=== PATIENT | male | born 1940 | race Caucasian/White ===

== ENCOUNTER 2020-08-17 22:27 | Observation (INO) | payer BC, MEDICARE ==
[2020-08-17 23:04] LABS: Basophils # (A) 0.1 k/uL (0-0.2); Basophils % (A) 1 %; Eosinophils # (A) 0.1 k/uL (0-0.7); Eosinophils % (A) 1 %; HCT 42.6 % (39.0-53.0); HGB 14.6 gm/dL (13.0-17.5); Lymphocytes % (A) 10 %; MCH 31.7 pg (25.0-35.0); MCHC 34.3 g/dL (31.0-37.0); MCV 92.3 fL (80.0-100.0); Mean Platelet Volume 7.2; Monocytes # (A) 0.6 k/uL (0-1.0); Monocytes % (A) 6 %; Neutrophils # (A) 8.8 k/uL (1.3-7.7); Neutrophils % (A) 83 %; Platelet Count 173 k/uL (150-450); RBC 4.61 m/uL (4.30-5.90); RDW 12.4 % (11.5-15.5); WBC 10.6 k/uL (3.8-10.6)
[2020-08-17 23:13] LABS: Albumin 4.2 g/dL (3.5-5.0); Calcium 9.4 mg/dL (8.4-10.2); Magnesium 1.6 mg/dL (1.6-2.3); Total Bilirubin 1.1 mg/dL (0.2-1.3); Total Protein 7.1 g/dL (6.3-8.2)
--- NOTE | 2020-08-17 23:18 | XR ---
EXAMINATION TYPE: XR chest 2V DATE OF EXAM: 08/17/2020 COMPARISON: NONE HISTORY: Chest pain TECHNIQUE: 2 views FINDINGS: Heart is normal. Thoracic aorta is atheromatous. Lungs are clear. There is no heart failure . There are chest leads. Costophrenic angles are clear. IMPRESSION: No active cardiopulmonary disease. Normal heart.
[2020-08-17 23:20] LABS: D-Dimer 0.58 mg/L FEU (<0.60); INR 0.9 (<1.2); Partial Thromboplastin Time 23.5 sec (22.0-30.0); Prothrombin Time 9.7 sec (9.0-12.0)
--- NOTE | 2020-08-17 23:56 | ED ---
Chest Pain HPI - General Chief Complaint: Chest Pain Stated Complaint: Chest pain Time Seen by Provider: 08/17/20 22:37 Source: patient Mode of arrival: wheelchair Limitations: no limitations - History of Present Illness Initial Comments: This patient is 79-year-old man who presents to be evaluated for chest pain. He states that he had some vague discomfort last night but states that the pain really began this morning while he was watching television. He indicates substernal area and states that it's a burning sensation. It is intermittent lasting around 10-15 minutes at a time. He currently has no pain. He became concerned when he had an episode that included some diaphoresis. Patient states that his father of an [place] in his 50s. MD Complaint: chest pain Onset/Timin -: days(s) Onset: during rest Pain Location: substernal Pain Radiation: none Severity: mild Quality: other Consistency: intermittent, now resolved Improves With: nothing Worsens With: nothing Anginal Symptoms: diaphoresis Treatments Prior to Arrival: none - Related Data Home Medications Medication Instructions Recorded Confirmed Atorvastatin [Lipitor] 80 mg PO DAILY 08/17/20 08/17/20 Diltiazem Cd [Cardizem Cd] 240 mg PO DAILY 08/17/20 08/17/20 hydroCHLOROthiazide [Hydrodiuril] 12.5 mg PO DAILY 08/17/20 08/17/20 lisinopriL 40 mg PO DAILY 08/17/20 08/17/20 Allergies Allergy/AdvReac Type Severity Reaction Status Date / Time No Known Allergies Allergy Verified 08/17/20 23:32 Review of Systems ROS Statement: Those systems with pertinent positive or pertinent negative responses have been documented in the HPI. ROS Other: All systems not noted in ROS Statement are negative. Constitutional: Denies: fever, chills Respiratory: Denies: cough, dyspnea Cardiovascular: Reports: as per HPI, chest pain. Denies: palpitations, orthopnea, edema, syncope Gastrointestinal: Denies: abdominal pain, nausea, vomiting Genitourinary: Denies: dysuria, hematuria Musculoskeletal: Denies: back pain Skin: Denies: rash Neurological: Denies: headache, weakness, numbness EKG Findings - EKG Results: EKG: interpreted by ERMD, sinus rhythm, normal QRS, normal ST/T EKG shows: tachycardia (Rate 106 bpm) - Blocks, Barre, Hypertrophy, ST Abn: QRS axis and voltage: left axis deviation (-30 to -90) Past Medical History Past Medical History: Hyperlipidemia, Hypertension History of Any Multi-Drug Resistant Organisms: None Reported Past Surgical History: Appendectomy, Hernia Repair, Orthopedic Surgery Additional Past Surgical History / Comment(s): lt knee Past Psychological History: No Psychological Hx Reported Smoking Status: Never smoker Past Alcohol Use History: Occasional Past Drug Use History: None Reported General Exam Limitations: no limitations General appearance: alert, in no apparent distress Head exam: Present: atraumatic, normocephalic Eye exam: Present: normal appearance. Absent: scleral icterus, conjunctival injection ENT exam: Present: normal oropharynx Neck exam: Present: normal inspection Respiratory exam: Present: normal lung sounds bilaterally. Absent: respiratory distress, wheezes, rales, rhonchi, stridor Cardiovascular Exam: Present: regular rate, normal rhythm, normal heart sounds. Absent: systolic murmur, diastolic murmur, rubs, gallop GI/Abdominal exam: Present: soft. Absent: distended, tenderness, guarding, rebound, rigid, mass Extremities exam: Present: normal inspection, normal capillary refill. Absent: pedal edema, calf tenderness Back exam: Present: normal inspection. Absent: CVA tenderness (R), CVA tenderness (L) Neurological exam: Present: alert Skin exam: Present: warm, dry, intact, normal color. Absent: rash Course Vital Signs 08/17/20 08/17/20 08/18/20 22:28 23:31 00:45 Temperature 100.2 F H 100.9 F H Pulse Rate 104 H 79 82 Respiratory 20 16 16 Rate Blood Pressure 151/84 110/61 112/63 O2 Sat by Pulse 96 98 96 Oximetry 08/18/20 01:57 Temperature 99.8 F H Pulse Rate 87 Respiratory 18 Rate Blood Pressure 118/78 O2 Sat by Pulse 97 Oximetry Disposition Clinical Impression: Atypical chest pain Disposition: ADMITTED IP TO THIS HOSP Condition: Good Is patient prescribed a controlled substance at d/c from ED?: No
[2020-08-18] MEDS ORDERED: NITROGLYCERIN SL TABS 0.4 MG TAB SUBLINGUAL PRN (00:41)
[2020-08-18] MEDS ORDERED: ACETAMINOPHEN TAB 325 MG TAB PO STA (01:01)
[2020-08-18] MEDS: ATORVASTATIN 80 MG TAB PO SCH (09:58)
[2020-08-18] MEDS: DILTIAZEM CD 240 MG CAP.ER.24H PO SCH (09:58)
[2020-08-18] MEDS: hydroCHLOROthiazide 12.5 MG CAP PO SCH (09:58)
[2020-08-18] MEDS: lisinopriL 20 MG TAB PO SCH (09:58)
--- NOTE | 2020-08-18 13:44 | P.CRDCN ---
History of Present Illness History of present illness: HISTORY OF PRESENTING ILLNESS This is a pleasant 79-year-old male past medical history significant for essential hypertension, hyperlipidemia and rare alcohol use. 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 He does have a family history of his mother dying operating table for cardiac surgery as well as father of an [place] in his 50s. He noted chest pain over the past 2 days which felt somewhat sharp and was worse with inspiration. He also has been noting a cough and states he broke out in a sweat last night and has been having chills. He denies any sick contacts. He was noted to have a fever of 100.9 on admission. He denies any similar symptoms. He was concern given his family history and therefore presented to the emergency department. He had workup including a chest x-ray which showed no acute cardiopulmonary process. He was tested for [place] in 19 which was normal. His troponins were noted to be normal. Creatinine 1.07. D-dimer 0.58. White blood cell 10.6 and hemoglobin 14.6. He denies any association with exertion and states he has been feeling fine going about his daily activities. The chest pain had been fairly constant until this morning it has improved DIAGNOSTICS EKG reveals sinus tachycardia with heart rate 106, left axis deviation, poor R- wave progression, possible lead misplacement. Chest xray no acute process. Current cardiac medications include aspirin 325 mg daily, Lipitor 80 mg daily, Cardizem 240 mg daily, hydrocodone thiazide 12.5 mg daily, lisinopril 40 mg daily. REVIEW OF SYSTEMS At the time of my exam: CONSTITUTIONAL: + fever+ chills. CARDIOVASCULAR: +chest pain, denies shortness of breath, orthopnea, PND or palpitations. RESPIRATORY: + cough. GASTROINTESTINAL: Denies abdominal pain, diarrhea, constipation, nausea or vomiting. MUSCULOSKELETAL: Denies myalgias. NEUROLOGIC: Denies numbness, tingling or weakness. ENDOCRINE: Denies fatigue, weight change, polydipsia or polyurina. GENITOURINARY: Denies burning, hematuria or urgency with micturation. HEMATOLOGIC: Denies history of anemia or bleeding. PHYSICAL EXAMINATION Vital signs reviewed CONSTITUTIONAL: No apparent distress. HEENT: Head is normocephalic. Pupils are equal, round. Sclerae anicteric. Mucous membranes of the mouth are moist. No JVD. No carotid bruit. CHEST EXAMINATION: Lungs are clear to auscultation. No chest wall tenderness is noted on palpation or with deep breathing. HEART EXAMINATION: Regular rate and rhythm. S1, S2 heard. No murmurs, gallops or rub. ABDOMEN: Soft, nontender. Positive bowel sounds. EXTREMITIES: 2+ peripheral pulses, no lower extremity edema and no calf tenderness. NEUROLOGIC EXAMINATION: Patient is awake, alert and oriented x3. ASSESSMENT 1. Atypical chest pain which appears more pleuritic in nature. Patient's presentation of cough, fevers, chills may be related to a infectious etiology 2. Essential hypertension 3. Hyperlipidemia 4. Family history of coronary artery disease 5. Recent fevers, chills, cough however chest x-ray without acute process. May be bronchitis or other early pneumonia PLAN Patient's main presentation appears consistent with an infectious etiology with fevers, chills and cough. His chest x-ray however was normal. His chest pain appears predominantly pleuritic in nature. He does however have significant risk factors and we discussed echocardiogram and possible stress testing if patient remains in the hospital. Patient believes he will be able to exercise on a treadmill. We will check a 2-D echo and stress echo if patient remains hospitalized. Past Medical History Past Medical History: Hyperlipidemia, Hypertension History of Any Multi-Drug Resistant Organisms: None Reported Past Surgical History: Appendectomy, Hernia Repair, Orthopedic Surgery Additional Past Surgical History / Comment(s): lt knee Past Anesthesia/Blood Transfusion Reactions: No Reported Reaction Past Psychological History: No Psychological Hx Reported Smoking Status: Never smoker Past Alcohol Use History: Occasional Past Drug Use History: None Reported Medications and Allergies Home Medications Medication Instructions Recorded Confirmed Type Atorvastatin [Lipitor] 80 mg PO DAILY 08/17/20 08/17/20 History Diltiazem Cd [Cardizem Cd] 240 mg PO DAILY 08/17/20 08/17/20 History hydroCHLOROthiazide [Hydrodiuril] 12.5 mg PO DAILY 08/17/20 08/17/20 History lisinopriL 40 mg PO DAILY 08/17/20 08/17/20 History Allergies Allergy/AdvReac Type Severity Reaction Status Date / Time No Known Allergies Allergy Verified 08/17/20 23:32 Physical Exam Vitals: Vital Signs Temp Pulse Pulse Resp BP BP Pulse Ox 08/18/20 09:00 98.6 F 87 16 120/69 95 12/27/20 05:21 98.1 F 08/18/20 02:29 99.2 F 88 112/64 96 08/18/20 02:20 99.2 F 88 112/64 96 08/18/20 01:57 99.8 F H 87 18 118/78 97 08/18/20 00:45 100.9 F H 82 16 112/63 96 08/17/20 23:31 79 16 110/61 98 08/17/20 22:28 100.2 F H 104 H 20 151/84 96 Intake and Output 08/17/20 08/18/20 08/18/20 22:59 06:59 14:59 Intake Total 0 0 Balance 0 0 Intake: Oral 0 0 Other: Weight 81.647 kg 81.647 kg Results 08/17/20 22:57 08/17/20 22:57 Cardiac Enzymes 08/17/20 08/17/20 08/18/20 Range/Units 22:57 22:57 01:40 AST 21 (17-59) U/L Troponin I <0.012 <0.012 (0.000-0.034) ng/mL 08/18/20 Range/Units 05:26 AST (17-59) U/L Troponin I <0.012 (0.000-0.034) ng/mL Coagulation 08/17/20 Range/Units 22:57 PT 9.7 (9.0-12.0) sec APTT 23.5 (22.0-30.0) sec CBC 08/17/20 Range/Units 22:57 WBC 10.6 (3.8-10.6) k/uL RBC 4.61 (4.30-5.90) m/uL Hgb 14.6 (13.0-17.5) gm/dL Hct 42.6 (39.0-53.0) % Plt Count 173 (150-450) k/uL Comprehensive Metabolic Panel 08/17/20 Range/Units 22:57 Sodium 139 (137-145) mmol/L Potassium 4.0 (3.5-5.1) mmol/L Chloride 104 (98-107) mmol/L Carbon Dioxide 27 (22-30) mmol/L BUN 18 (9-20) mg/dL Creatinine 1.07 (0.66-1.25) mg/dL Glucose 153 H (74-99) mg/dL Calcium 9.4 (8.4-10.2) mg/dL AST 21 (17-59) U/L ALT 18 (4-49) U/L Alkaline Phosphatase 91 (38-126) U/L Total Protein 7.1 (6.3-8.2) g/dL Albumin 4.2 (3.5-5.0) g/dL Current Medications Generic Name Dose Route Start Last Admin Trade Name Freq PRN Reason Stop Dose Admin Aspirin 325 mg 08/19/20 09:00 Aspirin 325 Mg Tab PO DAILY AVIVA Atorvastatin Calcium 80 mg 08/18/20 09:00 08/18/20 09:58 Atorvastatin 80 Mg Tab PO 80 mg DAILY AVIVA Administration Diltiazem HCl 240 mg 08/18/20 09:00 08/18/20 09:58 Diltiazem Cd 240 Mg Cap.Er.24h PO 240 mg DAILY AVIVA Administration Hydrochlorothiazide 12.5 mg 08/18/20 09:00 08/18/20 09:58 Hydrochlorothiazide 12.5 Mg Cap PO 12.5 mg DAILY AVIVA Administration Lisinopril 40 mg 08/18/20 09:00 08/18/20 09:58 Lisinopril 20 Mg Tab PO 40 mg DAILY AVIVA Administration Nitroglycerin 0.4 mg 08/18/20 00:41 Nitroglycerin Sl Tabs 0.4 Mg Tab SUBLINGUAL Q5M PRN Chest Pain Sodium Chloride 10 ml 08/18/20 09:00 Sodium Chloride 0.9% Flush 10 Ml Syringe IV BID AVIVA Intake and Output 08/17/20 08/18/20 08/18/20 22:59 06:59 14:59 Intake Total 0 0 Balance 0 0 Intake: Oral 0 0 Other: Weight 81.647 kg 81.647 kg 08/17/20 22:57 08/17/20 22:57
--- NOTE | 2020-08-18 15:17 | P.HPIM ---
History of Present Illness H&P Date: 08/18/20 Chief Complaint: Intermittent chest pain however for last 3 days has been co ughing greenish This is a 79-year-old male with prior medical history significant for hypertension hypertensive cardiovascular disease also dyslipidemia, patient is a nonsmoker, came into the hospital with awake left-sided chest pain while he was watching TV pain was substernal as well along with burning sensation lasted few minutes came into the hospital however in the hospital noted to have P faint pain-free, patient on the other hand does have a history of cough and increase in sputum production for last 3 or 4 days, chest x-ray is unremarkable, cardiovascular services and evaluated the patient is scheduled for a stress test and echocardiogram Review of Systems All systems: negative Past Medical History Past Medical History: Hyperlipidemia, Hypertension History of Any Multi-Drug Resistant Organisms: None Reported Past Surgical History: Appendectomy, Hernia Repair, Orthopedic Surgery Additional Past Surgical History / Comment(s): lt knee Past Anesthesia/Blood Transfusion Reactions: No Reported Reaction Past Psychological History: No Psychological Hx Reported Smoking Status: Never smoker Past Alcohol Use History: Occasional Past Drug Use History: None Reported Medications and Allergies Home Medications Medication Instructions Recorded Confirmed Type Atorvastatin [Lipitor] 80 mg PO DAILY 08/17/20 08/17/20 History Diltiazem Cd [Cardizem Cd] 240 mg PO DAILY 08/17/20 08/17/20 History hydroCHLOROthiazide [Hydrodiuril] 12.5 mg PO DAILY 08/17/20 08/17/20 History lisinopriL 40 mg PO DAILY 08/17/20 08/17/20 History Allergies Allergy/AdvReac Type Severity Reaction Status Date / Time No Known Allergies Allergy Verified 08/17/20 23:32 Physical Exam Vitals: Vital Signs Temp Pulse Pulse Resp BP BP Pulse Ox 08/18/20 09:00 98.6 F 87 16 120/69 95 08/18/20 05:21 98.1 F 08/18/20 02:29 99.2 F 88 112/64 96 08/18/20 02:20 99.2 F 88 112/64 96 08/18/20 01:57 99.8 F H 87 18 118/78 97 08/18/20 00:45 100.9 F H 82 16 112/63 96 08/17/20 23:31 79 16 110/61 98 08/17/20 22:28 100.2 F H 104 H 20 151/84 96 Intake and Output 08/18/20 08/18/20 08/18/20 06:59 14:59 22:59 Intake Total 0 0 Balance 0 0 Intake: Oral 0 0 Other: Weight 81.647 kg - Constitutional General appearance: average body habitus, cooperative, disheveled - EENT Eyes: EOMI, PERRLA Ears: bilateral: normal - Neck Carotids: bilateral: upstroke normal - Respiratory Respiratory: bilateral: CTA - Cardiovascular Rhythm: regular Heart sounds: normal: S1, S2 - Gastrointestinal General gastrointestinal: soft - Integumentary Integumentary: normal turgor - Neurologic Neurologic: CNII-XII intact - Musculoskeletal Musculoskeletal: gait normal, generalized weakness, strength equal bilaterally - Psychiatric Psychiatric: A&O x's 3, appropriate affect, intact judgment & insight Results CBC & Chem 7: 08/17/20 22:57 08/17/20 22:57 Labs: Abnormal Lab Results - Last 24 Hours (Table) 08/17/20 08/17/20 Range/Units 22:57 22:57 Neutrophils # 8.8 H (1.3-7.7) k/uL Glucose 153 H (74-99) mg/dL Chest x-ray: report reviewed, image reviewed Thrombosis Risk Factor Assmnt - Choose All That Apply Each Risk Factor Represents 3 Points: Age 75 years or older Thrombosis Risk Factor Assessment Total Risk Factor Score: 3 Thrombosis Risk Factor Assessment Level: Moderate Risk Assessment and Plan Assessment: Chest pain substernal and left-sided, cardiovascular services evaluating currently patient is pain-free Acute bronchitis Hypertension hypertensive cardiovascular disease Dyslipidemia Plan: We'll start patient on doxycycline along with Rocephin Further workup and cardiovascular evaluation as per computer hardware developer Continue home medications Further recommendations pending plan of care as per clinical response of the patient Time with Patient: Greater than 30
[2020-08-18] MEDS: DOXYCYCLINE 100 MG CAP PO SCH ×2 (15:31→20:31)
[2020-08-18] MEDS ORDERED: RX INFO: IV CONTRAST WAS GIVEN 1 EACH MISC MISCELLANE PRN (20:55)
--- NOTE | 2020-08-18 23:03 | CT ---
EXAMINATION TYPE: CT chest w con DATE OF EXAM: 08/18/2020 COMPARISON: None HISTORY: Pt tachypnea and diaphoretic. CT DLP: 388.7 mGycm Automated exposure control for dose reduction was used. CONTRAST: Performed with IV Contrast, patient injected with 100 mL of Isovue 300. Images obtained from the thoracic inlet to the diaphragm with IV contrast. There is some mild subsegmental atelectasis in the posterior lung orellana. There is some mild airspace infiltrate left posterior lung base. There is no pleural effusion. There is small pericardial effusi on. There is 1.5 [place] cyst in the superior right lobe of the liver. There are no hilar masses. Thoracic aorta is intact. 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 T he ascending aorta measures 4 cm without dissection. There is some spurring in the thoracic spine. I see no significant compression deformity. There is 15 % wedging of T6 vertebra. The sternum is intact. There are multiple calcified gallstones. The bile ducts are not dilated. IMPRESSION: There is some mild linear infiltrate and atelectasis at the lung bases. No suspicious pulmonary mass. This is consistent with inflammatory disease. Mild pericardial effusion.
[2020-08-19 03:31] LABS: Cholesterol 137 mg/dL (<200); HDL Cholesterol 36 mg/dL (40-60); LDL Cholesterol,Calculated 89 mg/dL (0-99); Triglycerides 59 mg/dL (<150)
--- NOTE | 2020-08-19 08:57 | P.PN ---
Subjective Patient is doing well. He feels a lot better now. He had pleuritic chest discomfort when he came in on both sides of his chest but for the last day and a half he has not had any further discomfort. His breathing is better He is afebrile 98.6F, pulse rate in the 80s he is not short of breath he is not in any respiratory distress Blood pressure 150/63 mmHg he does not appear tachypneic and he is not coughing Computed tomography scan suggests an inflammatory process in the lung S pace disease in the left posterior lung base on computed tomography scan Small pericardial effusion on computed tomography scan Multiple calcified gallstones Spondylosis of the spine Cyst in the superior right lobe of the liver 1.5 cm Impression Patient admitted with shortness of breath cough low-grade fever and tachypnea likely pneumonitis Currently on IV antibiotics and showing significant improvement Cardiac enzymes are normal EKG is normal Dyslipidemia, on atorvastatin 80 mg daily, LDL in the 80s Hypertension, on lisinopril and diltiazem Suggest 2-D echo and Doppler study to be reviewed. It was just done Continue antibiotics Continue antihypertensive therapy Continue statins No further cardiac workup needed at this point Outpatient reevaluation after completion of oral antibiotics at home Follow up with Dr. Ivy in 1 week post discharge new From a cardiac standpoint patient may go home in the next 24-48 hours if hemodynamically stable Currently he is stable Objective - Vital Signs Vital signs: Vital Signs Temp 98.6 F 08/19/20 02:20 Pulse 85 08/19/20 02:20 Resp 28 H 08/18/20 19:55 BP 98/60 08/19/20 02:20 Pulse Ox 94 L 08/19/20 02:20 Intake & Output 08/18/20 08/19/20 08/19/20 18:59 06:59 18:59 Intake Total 1130 Balance 1130 Intake: Intake, IV Titration 50 Amount cefTRIAXone 1 gm In 50 Sodium Chloride 0.9% 50 ml @ 100 mls/hr IVPB Q24HR ON LICENSE OF [facility] Rx#:[id number] Oral 1080 Other: # Voids 2 3 - Labs CBC & Chem 7: 08/17/20 22:57 08/17/20 22:57 Labs: Abnormal Lab Results - Last 24 Hours (Table) 08/18/20 Range/Units 05:26 HDL Cholesterol 36 L (40-60) mg/dL
[2020-08-19] MEDS ORDERED: ASPIRIN 325 MG TAB PO SCH (09:00)
[2020-08-19] MEDS: DILTIAZEM CD 240 MG CAP.ER.24H PO SCH (09:22)
[2020-08-19] MEDS: DOXYCYCLINE 100 MG CAP PO SCH (09:22)
[2020-08-19] MEDS: hydroCHLOROthiazide 12.5 MG CAP PO SCH (09:22)
[2020-08-19] MEDS: lisinopriL 20 MG TAB PO SCH (09:22)
[2020-08-19] MEDS: ATORVASTATIN 80 MG TAB PO SCH (09:22)
[2020-08-19 10:35] VITALS: RESP 16
--- NOTE | 2020-08-19 13:01 | ECHOF ---
Referral Reason:re: CP MEASUREMENTS -------- HEIGHT: 172.7 cm WEIGHT: 81.6 kg BP: 98/60 IVSd: 1.2 cm (0.6 - 1.1) LVIDd: 3.8 cm (3.9 - 5.3) LVPWd: 1.4 cm (0.6 - 1.1) IVSs: 1.7 cm LVIDs: 2.8 cm LVPWs: 1.4 cm RVIDd: 4.8 cm (< 3.3) LAESV Index (A-L): 26.61 ml/m Ao Diam: 3.7 cm (2.0 - 3.7) AV Cusp: 2.2 cm (1.5 - 2.6) EPSS: 1.1 cm MV E Jostin: 0.96 m/s MV DecT: 218 ms MV A Jostin: 1.12 m/s MV E/A Ratio: 0.86 RAP: 5.00 mmHg RVSP: 42.55 mmHg MV EF SLOPE: 84.66 mm/s (70 - 150) MV EXCURSION: 17.80 mm (> 18.000) FINDINGS -------- Sinus rhythm. This was a technically adequate study. The left ventricular size is normal. There is mild concentric left ventricular hypertrophy. Overa ll left ventricular systolic function is normal with, an EF between 55 - 60 %. The right ventricle is moderately enlarged. Normal LA size by volume 22+/-6 ml/m2. The right atrial size is normal. Interatrial and interventricular septum intact. The aortic valve is trileaflet and appears structurally normal. There is no evidence of aortic regu rgitation. There is no evidence of aortic stenosis. There is trace to mild mitral regurgitation. Moderate tricuspid regurgitation present. There is moderate pulmonary hypertension. The right andria tricular systolic pressure, as measured by Doppler, is 42.55mmHg. Trace/mild (physiologic) pulmonic regurgitation. The aortic root size is normal. IVC Not well visulized. There is no pericardial effusion. CONCLUSIONS -------- 1. The left ventricular size is normal. 2. There is mild concentric left ventricular hypertrophy. 3. Overall left ventricular systolic function is normal with, an EF between 55 - 60 %. 4. The right ventricle is moderately enlarged. 5. There is trace to mild mitral regurgitation. 6. Moderate tricuspid regurgitation present. 7. There is moderate pulmonary hypertension. 8. The right ventricular systolic pressure, as measured by Doppler, is 42.55mmHg. 9. Trace/mild (physiologic) pulmonic regurgitation. TERRAZZO ROLLER: Augustina Mendez RDCS
[2020-08-19 15:29] VITALS: BP 110/69; PULSE 98; TEMP 98.2
--- NOTE | 2020-08-19 18:01 | P.DS ---
Providers Date of admission: 08/18/20 00:41 Expected date of discharge: 08/19/20 Attending physician: Jim Page Consults: 08/18/20 00:41 Consult Physician Routine Consulting Provider: Jessi Ramon Consult Reason/Comments: chest pain Do you want consulting provider notified?: Yes Primary care physician: Azael Veras MD Hospital Course: 08/19/2020, patient seen eval reexamined labs reviewed medications reviewed cough congestion improved patient remains on Rocephin and doxycycline, respiratory status stable, cardiovascular services recommended to schedule a stress test and echocardiogram as outpatient, given ongoing respiratory symptoms,, a shunt to follow with Dr. William Ivy in 1 week This is a 79-year-old male with prior medical history significant for h ypertension hypertensive cardiovascular disease also dyslipidemia, patient is a nonsmoker, came into the hospital with awake left-sided chest pain while he was watching TV pain was substernal as well along with burning sensation lasted few minutes came into the hospital however in the hospital noted to have P faint pain-free, patient on the other hand does have a history of cough and increase in sputum production for last 3 or 4 days, chest x-ray is unremarkable, cardiovascular services and evaluated the patient is scheduled for a stress test and echocardiogram - Constitutional General appearance: average body habitus, cooperative, disheveled - EENT Eyes: EOMI, PERRLA Ears: bilateral: normal - Neck Carotids: bilateral: upstroke normal - Respiratory Respiratory: bilateral: CTA - Cardiovascular Rhythm: regular Heart sounds: normal: S1, S2 - Gastrointestinal General gastrointestinal: soft - Integumentary Integumentary: normal turgor - Neurologic Neurologic: CNII-XII intact - Musculoskeletal Musculoskeletal: gait normal, generalized weakness, strength equal bilaterally - Psychiatric Psychiatric: A&O x's 3, appropriate affect, intact judgment & insigt Patient had a computed tomography scan of the chest which showed linear infiltrate along with atelectasis, no suspicious masses present, no pulmonary embolism present mild pericardial effusion identified Echocardiogram revealed ejection fraction of 55-60%, mild pulmonary hypertension is present, Assessment: Community-acquired pneumonia Mild to moderate pulmonary hypertension Small pericardial effusion Chest pain substernal and left-sided, cardiovascular services evaluating currently patient is pain-free most likely due to bronchitis and pneumonia Acute bronchitis Hypertension hypertensive cardiovascular disease Dyslipidemia Procedures: Echocardiogram and computed tomography scan of the chest with IV contrast to rule out pulmonary embolism finding as above Patient Condition at Discharge: Good Plan - Discharge Summary New Discharge Prescriptions: New Aspirin 325 mg PO DAILY #30 tab Doxycycline [Vibramycin] 100 mg PO BID 7 Days #14 cap Continue lisinopriL 40 mg PO DAILY hydroCHLOROthiazide [Hydrodiuril] 12.5 mg PO DAILY Diltiazem Cd [Cardizem CD] 240 mg PO DAILY Atorvastatin [Lipitor] 80 mg PO DAILY Discharge Medication List Atorvastatin [Lipitor] 80 mg PO DAILY 08/17/20 [History] Diltiazem Cd [Cardizem CD] 240 mg PO DAILY 08/17/20 [History] hydroCHLOROthiazide [Hydrodiuril] 12.5 mg PO DAILY 08/17/20 [History] lisinopriL 40 mg PO DAILY 08/17/20 [History] Aspirin 325 mg PO DAILY #30 tab 08/19/20 [Rx] Doxycycline [Vibramycin] 100 mg PO BID 7 Days #14 cap 08/19/20 [Rx] Follow up Appointment(s)/Referral(s): Jerrod Ivy DO [STAFF PHYSICIAN] - 1 Week Nonstaff,Physician [REFERRING] - 1-2 days Jim Page MD [STAFF PHYSICIAN] - 1 Week Discharge Disposition: HOME SELF-CARE
== END 2020-08-19 18:30 | disposition home or self-care (01) ==
LOC: EC 22:27 → SUPCPDRO 22:27 → 1SOBS 08-18 00:41
PROVIDERS: ADMIT Internal Medicine Sleep Medicine; ATTEND Internal Medicine Sleep Medicine
DX: J18.9 Pneumonia, unspecified organism (principal); I27.20 Pulmonary hypertension, unspecified; I31.3 Pericardial effusion (noninflammatory); J20.9 Acute bronchitis, unspecified; I11.9 Hypertensive heart disease without heart failure; E78.5 Hyperlipidemia, unspecified; J98.11 Atelectasis; R94.31 Abnormal electrocardiogram [ECG] [EKG]; K80.80 Other cholelithiasis without obstruction; M47.899 Other spondylosis, site unspecified; K76.89 Other specified diseases of liver; Z20.828 Contact with and (suspected) exposure to other viral communicable diseases; Z79.899 Other long term (current) drug therapy; Z90.49 Acquired absence of other specified parts of digestive tract; Z87.19 Personal history of other diseases of the digestive system; Z98.890 Other specified postprocedural states; Z82.49 Family history of ischemic heart disease and other diseases of the circulatory system
CPT/HCPCS: 93005 ×2; 96365; 99285; 36415; 93306; 85379; 80061; 80053; 82150; 83690; 83735; 84484 ×2; 85025; 85610; 85730; 87635; 71046; 71260; G0378 ×2; J0696 ×2; Q9967